=== PATIENT | male | born 1950 | race Caucasian/White ===

== ENCOUNTER 2025-02-23 06:40 | Observation (INO) ==
--- NOTE | 2025-01-24 09:11 | PAT Medication Instructions ---
Medication Instructions Date of Service January 24, 2025 Home Medications atorvastatin 20 mg tablet 20 mg PO QAM cholecalciferol (vitamin D3) 125 mcg (5,000 unit) tablet (Vitamin D3) 125 mcg PO QAM levothyroxine 150 mcg tablet 150 mcg PO QAM lisinopril 10 mg tablet 10 mg PO QAM metoprolol succinate 50 mg tablet,extended release 24 hr 50 mg PO QAM pantoprazole 40 mg tablet,delayed release 40 mg PO QAM DO NOT take the morning of surgery cholecalciferol (vitamin D3) 125 mcg (5,000 unit) tablet (Vitamin D3) 125 mcg PO QAM lisinopril 10 mg tablet 10 mg PO QAM Take morning of surgery With a small sip of water, OTHERWISE NOTHING TO EAT OR DRINK AFTER MIDNIGHT: atorvastatin 20 mg tablet 20 mg PO QAM levothyroxine 150 mcg tablet 150 mcg PO QAM metoprolol succinate 50 mg tablet,extended release 24 hr 50 mg PO QAM pantoprazole 40 mg tablet,delayed release 40 mg PO QAM Other Notes If you have any questions please call us at [phone] or [phone] or [phone] or [phone]
--- NOTE | 2025-01-27 13:38 | Anesthesiology Consultation ---
Date of Service January 27, 2025 Assessment & Plan (1) Encounter for pre-operative examination: Plan - awaiting surgeon ordered medical clearance, Carlos Dominguezfield 02/14/25. - awaiting surgeon ordered UA, patient plans to complete this through [facility]. Chart Review Chart Review: Patient seen in Pre Admission Testing Teaching & Discussion Pre-Anesthesia Teaching/Discussion Notes: Instructed NPO after midnight before surgery, except medications with 15 cc of water. Medication instructions provided according to the PAT guidelines. History Surgery Operation Date: 02/23/25 07:00 Proposed Procedures p Right Total Knee Arthroplasty - Baldo Nguyen MD Height/Weight Height: 6 ft 3 in Weight: 106 kg Allergies Allergy/AdvReac Type Severity Reaction Status Date / Time No Known Allergies Allergy Verified 01/20/25 11:16 Medications Home Medications Medication Instructions Recorded Confirmed Last Taken atorvastatin 20 mg tablet 20 mg PO QAM 01/20/25 01/20/25 Unknown cholecalciferol (vitamin D3) 125 125 mcg PO QAM 01/20/25 01/20/25 Unknown mcg (5,000 unit) tablet (Vitamin D3) levothyroxine 150 mcg tablet 150 mcg PO QAM 01/20/25 01/20/25 Unknown lisinopril 10 mg tablet 10 mg PO QAM 01/20/25 01/20/25 Unknown metoprolol succinate 50 mg 50 mg PO QAM 01/20/25 01/20/25 Unknown tablet,extended release 24 hr pantoprazole 40 mg tablet,delayed 40 mg PO QAM 01/20/25 01/20/25 Unknown release Past Medical History Medical History (Updated 01/27/25 @ 15:12 by Louisa June PA-C) GERD (gastroesophageal reflux disease) controlled, stable per pt History of COVID-19 (~2020) ~2020: flu symptoms. resolved. History of TIA (transient ischemic attack) remote history - pt unsure of date ~early ? Hx of subdural hematoma (1967) at age 17 treated at [facility] s/p football accident Hyperlipidemia Hypertension controlled, stable per pt Hypothyroidism Osteoarthritis Patient denies h/o seizures, heart attack, heart failure, DM, DVTs or blood transfusions. Exercise / Class Metabolic Activity II 4-5 Yardwork/Stairs/Walk up hill (denies chest discomfort or shortness of breath with one flight of stairs) Past Family History Family History Other No family history of adverse response to anesthesia Past Surgical History Surgical History History of appendectomy History of colonoscopy History of craniotomy (1967) + aaron hole surgery at [place] History of esophagogastroduodenoscopy (EGD) History of tonsillectomy Past Anesthesia History No Hx of Anesthesia Complications and No Family Hx of Anesthesia Complications History of PONV No Hx of PONV and No Hx of Motion Sickness Social History Smoking Status: Former smoker Do You Dip or Chew Tobacco: No Smoking End Date: quit 41 years ago Hx Alcohol Use: No Hx Substance Use: No substance use type: does not use Review of Systems Snoring, denies witnessed apneas. Patient denies chest pain, shortness of breath, dyspnea on exertion, fever, chills, cough, wheezing, or palpitations. Physical Exam Vital Signs Vitals BP 103/70 P 68 TEMP 97.9 SP02 97% on RA RESP 18 Physical Patient resting comfortably in chair in no acute distress, alert and oriented, responding appropriately throughout visit Full cervical extension range of motion without pain TMD 3.5 finger breadths Mallampati Score 3 Dentition: upper implant, denies chipped or loose teeth, caps/crowns, or bridges Lungs: normal respiratory effort. Good air movement, clear throughout to auscultation, no adventitious breath sounds Cardiac: regular rate and rhythm, no murmurs noted Carotid arteries: negative bruit bilat Lab Results Anesthesia Preop Results Results Anesthesia Widget: WBC 8.44 K/ul (4.8-10.8) 01/27/25 Hgb 14.2 g/dl (14.0-18.0) 01/27/25 Hct 43.5 % (42.0-52.0) 01/27/25 Plt 187 K/uL (130-400) 01/27/25 Na 137 mmol/L (136-145) 01/27/25 K 4.4 mmol/L (3.5-5.1) 01/27/25 Cl 104 mmol/L (98-107) 01/27/25 CO2 27 mmol/L (21-32) 01/27/25 BUN 19 mg/dl (6-23) 01/27/25 Creat 1.29 mg/dl (0.6-1.4) 01/27/25 Glucose Level 112 mg/dl (70-99(Fasting)) H 01/27/25 PT 10.3 Seconds (9.0-12.0) 01/27/25 PTT 29 Seconds (21-31) 01/27/25 INR 1.0 (0.9-1.1) 01/27/25 Blood Type O Positive 01/27/25 Antibody Screen NEGATIVE 01/27/25 Testing Electrocardiogram Date: 01/27/25 NSR, rate 61 bpm Chest X-Ray Date: 10/24/24 No significant abnormality detected
--- NOTE | 2025-01-30 10:32 | History & Physical Report ---
Date of Service January 30, 2025 Assessment & Plan (1) Osteoarthritis of right knee: Plan: PRE-OP Diagnosis: Right knee osteoarthritis Planned Procedure: Right total knee arthroplasty Plan: Patient is scheduled to undergo this procedure at the [facility] with Dr. Nguyen on February 23, 2025. Risks and complications of the procedure such as: Infection, bleeding, pain, scarring, nerve blood vessel damage, weakness, wound problems, stiffness, incomplete relief of symptoms, hardware failure, hardware loosening, wear, fracture, tendon or ligament injury, blood clots, embolism, cardiac, stroke and were explained to the patient at his visit today and informed consent for the procedure was obtained. We will need to obtain preoperative medical clearance from the patient's primary care provider Carlos Lara. This appointment is scheduled for February 14. Patient is scheduled to meet with anesthesia at the hospital today. While there he will obtain a CBC with differential, complete metabolic panel, PT/INR, blood type and screen, urinalysis, urine culture and sensitivity, EKG and a nasal culture for MRSA. During today's visit we reviewed the total knee packet. I provided the patient with paperwork to obtain obtaining a handicap placard for his vehicle. I provided him with information about lectures offered by [facility] in regards to joint replacement surgery. Patient has a walker, and a raised toilet seat and a shower bench. We discussed discharge planning from the hospital. Patient states that he will most likely do in-home physical therapy for the first 2 weeks before transitioning to outpatient physical therapy [facility] in [place] with Lauren Villasenor. I advised the patient that he will be provided with a prescription for narcotic pain medication for postoperative pain control due to his previous issues with narcotic pain medication patient would like to try tramadol instead. We will have him on aspirin twice daily for the first 30 days postoperatively for blood clot prevention. Patient verbalized understanding of all information provided during today's visit. Patient be scheduled for 2-week postoperative follow-up visit with myself on March 08. History of Present Illness Chief Complaint: Chief Complaint: Right knee pain Primary Care Provider: NO PCP History of Present Illness (including history relevant to procedure): This 74-year-old male presents to the clinic today for his preoperative history and physical. Patient states his right knee stems from a meniscal injury that he sustained approximately 13 years ago. He states that he has had 2 subsequent knee arthroscopy procedures with partial meniscectomy. Patient localizes most of his pain over the anterior medial lateral aspect of his knee. He experiences occasional swelling. He states that he has done physical therapy on 2 separate occasions and continues to have discomfort and recently a gait disturbance. Due to failed conservative management patient is electing to proceed with surgical management at this time. Review Of Systems: A 12 point review of systems is performed and is unremarkable except for those stated in the HPI and past medical history. Past Medical History: Problems: Arthritis of right knee Right knee pain Pes anserinus bursitis of right knee Hypertension Hyperlipidemia Hypothyroidism Procedure History Procedure Procedure Date Comments Right knee arthroscopy x 2 Appendectomy Right hand surgery Cranial surgery Hematoma excision from right leg Allergies and Sensitivities: narcotic analgesics(dependecy) PCN (penicillin)(rash) Current Home Meds: (Last Updated 01/27 13:16) atorvastatin (atorvastatin 20 mg oral tablet) 20 mg PO Daily cholecalciferol (Vitamin D3) levothyroxine (levothyroxine 150 mcg (0.15 mg) oral tablet) 150 mcg PO Daily lisinopril (lisinopril 10 mg oral tablet) 10 mg PO Daily metoprolol (Metoprolol Succinate ER 50 mg oral tablet, extended release) 50 mg PO Daily pantoprazole (pantoprazole 40 mg oral delayed release tablet) 40 mg PO Daily Allergies Allergy/AdvReac Type Severity Reaction Status Date / Time No Known Allergies Allergy Verified 01/20/25 11:16 Home Medications Medication Instructions Recorded Confirmed Type atorvastatin 20 mg tablet 20 mg PO QAM 01/20/25 01/20/25 History cholecalciferol (vitamin D3) 125 125 mcg PO QAM 01/20/25 01/20/25 History mcg (5,000 unit) tablet (Vitamin D3) levothyroxine 150 mcg tablet 150 mcg PO QAM 01/20/25 01/20/25 History lisinopril 10 mg tablet 10 mg PO QAM 01/20/25 01/20/25 History metoprolol succinate 50 mg 50 mg PO QAM 01/20/25 01/20/25 History tablet,extended release 24 hr pantoprazole 40 mg tablet,delayed 40 mg PO QAM 01/20/25 01/20/25 History release Past Med/Surg History Problem List (Updated 01/30/25 @ 10:31 by Richard Green PA-C) Osteoarthritis of right knee Encounter for pre-operative examination Medical History Osteoarthritis GERD (gastroesophageal reflux disease) controlled, stable per pt Hx of subdural hematoma (1967) at age 17 treated at [facility] s/p football accident Hypothyroidism History of TIA (transient ischemic attack) remote history - pt unsure of date ~early ? Hyperlipidemia Hypertension controlled, stable per pt History of COVID-19 (~2020) ~2020: flu symptoms. resolved. Surgical History History of esophagogastroduodenoscopy (EGD) History of appendectomy History of colonoscopy History of craniotomy (1967) + aaron hole surgery at [facility] History of tonsillectomy Family History Other No family history of adverse response to anesthesia Social History Smoking Status: Former smoker Tobacco Type: Cigarettes Second Hand Exposure: No; Do You Dip or Chew Tobacco: No; Hx Alcohol Use: No Hx Substance Use: No Preferred Language: Taiwanese Communication Ability: Effective Marketing Forecaster Required: No Beliefs That Will Affect Care: None Current Living Situation: Spouse Feels Safe at Home: Yes Assistive Devices: Contacts and Glasses Review of Systems All systems reviewed & are unremarkable except as noted in Subjective Physical Exam Physical Exam: Initial Wt: 01/27 104.3 kg 229 lb Physical Exam: (relevant to the procedure, including heart and lung evaluation) General: Alert and oriented x 3 with proper grooming and hygiene Eyes: Pupils are equal and reactive to light with accommodation. Extraocular movements are intact Throat: Posterior oropharynx is clear with absence of edema, erythema or exudate. Dentition is appropriate Cardiac: Regular rate and rhythm with no murmurs or gallops appreciated Lungs: Clear to auscultation throughout with no wheezing, rales or rhonchi Abdomen: Mildly obese, nondistended, nontender with normal active bowel sounds Extremities: Right leg: Active knee range of motion is from 10 degrees of extension to 118 degrees of flexion. Patient has some mild medial and lateral joint line tenderness when the knee is palpated in the flexed position. He has visible varus malalignment. His patella is not mobile due to arthritic change within the patellofemoral joint. Patient has no laxity with varus or valgus stressing. AP drawer sign and Mary test are negative. Patient is neurovascularly intact in right lower extremity but does have a slight antalgic gait. Neuro: Cranial nerves II through XII are intact with no motor or sensory deficit Skin: Normal in appearance no open skin areas or discharge Results & Data Diagnostic Findings Studies (relevant to the procedure): long leg alignment films andPA flexview of the right knee taken today and stored in [facility] system which shows mild varus alignment. Irregularity of subchondral plate on the medial femoral condyle. tricompartmental osteophyte formation. Near bone on bone arthritis in the right knee with cyst in the medial femoral condyle and medial tibial plateau
[~2025-02-23 06:40] MED LIST: BUPIVACAINE 0.25% PF 30 ML VIAL ONE; BUPIVACAINE 0.5 % 5 MG/1 ML PF 10ML VIAL ONE
[2025-02-23] MEDS: dexAMETHasone**PF** 10 MG/ML VIAL IV SCH (07:30)
[2025-02-23] MEDS: ACETAMINOPHEN 500 MG TAB PO SCH ×2 (07:30→13:48)
[2025-02-23] MEDS: LR 60ML/HR IV SCH (07:30)
[2025-02-23] MEDS: LR 500ML BOLUS, THEN 15ML/HR IV SCH (07:30)
[2025-02-23] MEDS: CeleBREX 200 MG CAP PO SCH ×2 (07:31→20:17)
[2025-02-23] MEDS: FAMOTIDINE 20 MG TAB PO SCH (07:31)
[2025-02-23] MEDS ORDERED: MIDAZOLAM HCL 1 MG/ML 2ML VIAL ONE (07:45)
[2025-02-23] MEDS ORDERED: ONDANSETRON INJ 2 MG/ML 2 ML VIAL ONE (07:46)
[2025-02-23] MEDS ORDERED: LIDOCAINE 2% 2 ML VIAL/AMP(20MG/ML) INFIL ONE (07:46)
[2025-02-23] MEDS ORDERED: ATROPINE SULFATE 0.1 MG/ML 10ML SYR IV PRN (08:19)
[2025-02-23] MEDS ORDERED: ONDANSETRON INJ 2 MG/ML 2 ML VIAL IV PRN ×2 (08:19→10:57)
[2025-02-23] MEDS: TRANEXAMIC ACID 1,000 MG **IV Pre-op IV SCH (08:59)
[2025-02-23] MEDS ORDERED: PROPOFOL IV EMULSION 10 MG/ML 20 ML VIAL IV ONE ×3 (09:01→10:25)
--- NOTE | 2025-02-23 09:02 | History & Physical Bridge Note ---
Date of Service February 23, 2025 History & Physical Bridge Note I have examined the patient, reviewed the History & Physical and in the interval since the performance of the History & Physical I have noted the following changes of clinical significance: no changes noted
[2025-02-23] MEDS ORDERED: PHENYLEPHRINE 100MCG/ML 5ML SYR ONE (10:01)
[2025-02-23] MEDS: ROPIVACAINE 0.5% HCL/PF 246 MG, Ketorolac (*for OR use only*) 30 MG, EPINEPHrine 30MG/3... INFIL SCH (10:22)
[2025-02-23] MEDS ORDERED: ePHEDrine sulfate 50 MG/5 ML SYR ONE (10:24)
--- NOTE | 2025-02-23 10:41 | Operative Report ---
Post Operative Report Pre & Post Diagnosis Operation Date: 02/23/25 08:50 Pre-Op Diagnosis: Right Knee Osteoarthritis Post-Op Diagnosis: Right Knee Osteoarthritis I identified the patient and participated in the time-out.: Yes Procedure Operation Date: 02/23/25 08:50 Actual Procedures p Right Total Knee Arthroplasty, cemented(Right) - Baldo Nguyen MD Surgeon Baldo Nguyen MD Associate Chief Nurse CONSUELO Green PA-C. No resident or fellow was available to assist. Estimated Blood Loss 50 Findings Consistent with Post-Op Diagnosis Specimens Right knee bone and soft tissue contents Anesthesia Type Spinal MAC Complications none Disposition Disposition: Recovery Room Indications 74-year-old male, with right knee osteoarthritis refractory to conservative management. X-rays demonstrate joint space narrowing, tricompartmental osteophyte formation, and subchondral sclerosis. I had a long discussion with him about the risks and benefits of surgery, alternatives to surgery, and expected outcomes. After reviewing all these he elected to proceed with surgery. All questions were answered. Informed consent was signed. Description of Procedure Patient was identified in the preoperative holding area where the surgical site, right knee, was marked. Spinal anesthetic was placed by anesthesia. Patient was brought back to the operating room, placed on the operating room table, and IV sedation was administered. A bump was placed underneath the ipsilateral hip. All bony prominences were padded. Perioperative antibiotics and tranexamic acid were administered. Exam under anesthesia was performed. This demonstrated range of motion arc from 15 to 95 degrees. Stable to varus and valgus at 30 degrees. The surgical site was prepped and draped in the normal sterile fashion. Prior to incision a multidisciplinary timeout was called. All in the room were in agreement. We began by exsanguinating the limb with an Esmarch bandage. Tourniquet was inflated to 250 mmHg. A 14 cm long incision was made over the anterior aspect of the knee. I dissected through the subcutaneous tissues to the level of the fascia. Full-thickness flaps were raised above the fascia. A median par apatellar arthrotomy was made. Half the fat pad was excised. A medial release was performed with Bovie electrocautery on the proximal tibia. Synovitis in the knee and suprapatellar pouch was removed. The patella was then everted and held with 2 towel clips. The thickness of the patella was measured at 25 mm. Patellar resection was performed. Caliper showed the patella thickness now to be 14 mm. A size 41 trial was placed and had a great fit. The 3 drill holes were placed then the trial button was placed. The patellar thickness was now 25 mm which I was very happy with. The patellar trial was then removed, and the knee was flexed up. Retractors were placed to protect the MCL and LCL. Osteophytes were removed from the femoral condyles and intercondylar notch. The ACL and PCL were excised. Intramedullary drill guide was drilled into the femur. Distal femoral cutting guide was placed set at 5 degrees of valgus to resect 12 mm off the distal femur. Distal femoral resection was made without difficulty. The tibia was then exposed. The lateral meniscus was sharply excised. The tibial cutting jig was positioned in line with the tibial shaft in the coronal plane and with 3 degrees of posterior slope in the sagittal plane to resect 4 mm off the more involved compartment. The jig was then pinned in position and the tibial cut was made. We then brought the knee into full extension. Lamina spreaders were placed. The medial meniscus was excised. The extension block was then placed for 5 mm thickness poly. This gave us full extension and excellent stability to varus and valgus stress. Next the extension block was removed, the knee was flexed up, collateral ligaments were protected, and the epicondylar axis and Whitesides line were marked out on the distal femoral cut. Femoral sizing guide was placed. External rotation was set at 3 degrees so that the posterior cut would be parallel with the epicondylar axis and perpendicular with Whitesides line. The patient sized to a size 9 femur. 2 pins were then placed through the jig into the distal femur. The jig was removed and the appropriately sized 4-in-1 cutting jig was placed over the pins, then fixated to the bone using threaded, headed pins. We confirmed that we would not notch the femur with our anterior cut. Our 4 cuts were then made. The cutting jig was removed. The flexion block was then placed with the knee held at 90 degrees. There was excellent stability to varus and valgus at 90 degrees with no gapping medially or laterally. Next the box cutting jig was placed on the distal femur. The box cut was made and the femoral trial was impacted into position. Lug holes were drilled in the distal femur. We then reexposed the tibia. The tibia was sized to a 8 for a fixed bearing component and pinned in external rotation on the cut tibial surface. The intramedullary drill followed by the keel punch were used to prepare the tibia. The tibial tray with a 5 mm thickness polyethylene liner was placed and the knee was brought through a full range of motion. There was excellent stability to varus valgus stress throughout a full range of motion, which was approximately 0-120 degrees. Next the trial components were removed. I then injected the posterior capsule and periosteum with the periarticular injection cocktail. The bone cuts were then irrigated and dried while the cement was mixed on the back table. The femoral component was cemented on first. Excess cement was removed. A lap sponge was placed over the femoral component for protection, then the tibia was subluxated anteriorly. The all polyethylene tibial component was then cemented in place. Again excess cement was removed. The knee was brought into full extension and held there until the cement cured. The patella was cemented and clamped. Dilute Betadine solution was then allowed to soak in the knee while the cement cured. Once the cement was fully cured, the knee was irrigated out, the tourniquet was let down and meticulous hemostasis was ensured. The knee was brought through a full range of motion. I was were very happy with the patella tracking and the stability. We then began to close. Interrupted 0 Vicryl suture was used to repair the patellar retinaculum in gutjso-is-potte fashion. The quadriceps and patellar tendons were run with #1 Vicryl. The deep dermal layer was closed with interrupted 2-0 Vicryl. Dermabond and Zipline was used for the skin, followed by a Silverlon dressing. A compressive Cassius wrap was placed and the knee was placed into a knee immobilizer. Patient's sedation was lifted and was transferred to recovery room in stable condition. Summary of implants: Depuy Attune Posterior Stabilized Cemented Femur, size 9 right Attune All-polyethylene tibial component, posterior stabilized 5 mm thickness, size 8 Attune patella medialized dome, size 41 2 batches of Palacos bone cement Postoperative course: Patient will be admitted to the floor for pain control and monitoring. Weightbearing as tolerated with a walker with no knee range of motion for 48 hours. Aspirin for DVT prophylaxis. I attest to the content of the Intraoperative Record and any orders documented therein. Any exceptions are noted below.
--- NOTE | 2025-02-23 10:55 | Operative Report ---
Post Operative Report Pre & Post Diagnosis Operation Date: 02/23/25 08:50 Pre-Op Diagnosis: Right Knee Osteoarthritis Post-Op Diagnosis: Right Knee Osteoarthritis I identified the patient and participated in the time-out.: Yes Procedure Operation Date: 02/23/25 08:50 Actual Procedures p Right Total Knee Arthroplasty, Cemented(Right) - Baldo Nguyen MD Surgeon Baldo Nguyen MD Machine Shop Repair Technician CONSUELO Green PA-C. No resident or fellow was available to assist. Estimated Blood Loss 50 Findings Consistent with Post-Op Diagnosis Specimens Right knee bone and soft tissue Description of Procedure I was present during the entire case assisting with positioning, prepping, draping, wound retraction, wound closure, dressing and immobilizer placement. No fellow present. Please see Dr. Nguyen operative note for specifics of the case. I attest to the content of the Intraoperative Record and any orders documented therein. Any exceptions are noted below.
[2025-02-23] MEDS ORDERED: METOCLOPRAMIDE HCL INJ 5 MG/ML 2 ML VIAL IV PRN (10:57)
[2025-02-23] MEDS ORDERED: ALUMINUM/MAGNESIUM SUSP 30 ML UDC PO PRN (10:57)
[2025-02-23] MEDS ORDERED: TAMSULOSIN HCL 0.4 MG CAP PO PRN (10:57)
[2025-02-23] MEDS ORDERED: diphenhydrAMINE 50 MG/ML VIAL IV PRN (10:57)
[2025-02-23] MEDS ORDERED: MAGNESIUM HYDROXIDE SUSP 30 ML UDC PO PRN (10:57)
[2025-02-23] MEDS ORDERED: NALOXONE HCL 0.4 MG/1 ML VIAL/CARP IV PRN (10:57)
[2025-02-23] MEDS ORDERED: HYDROmorphone INJ 0.5 MG/0.5 ML SYR IV PRN (10:57)
--- NOTE | 2025-02-23 12:09 | XRay Report ---
XR knee RT 1 or 2V routine HISTORY: 74 years-old Male Surgical Post Op right knee arthroplasty COMPARISON: 01/27/2025 TECHNIQUE: 2 views the right knee FINDINGS: Satisfactory alignment of the right knee arthroplasty without acute fracture, dislocation or unexpect ed opaque foreign body. Expected postoperative soft tissue swelling with deep tissue air. IMPRESSION: Satisfactory alignment of the right knee arthroplasty. ACT 112: Negative or not required by law. The above report was generated using voice recognition software. It may contain grammatical, syntax o r spelling errors. Electronically signed by: Vinnie Watson M.D. 02/23/2025 12:08 PM
--- NOTE | 2025-02-23 12:12 | Anesthesiology Progress Note ---
Date of Service February 23, 2025 Anesthesia Post Procedure Vital Signs Vital Signs: Temp Pulse Pulse Resp BP Pulse Ox O2 Del Method 02/23/25 12:00 67 14 111/67 95 Room Air 02/23/25 11:55 71 14 113/65 96 Room Air 02/23/25 11:45 67 16 113/69 96 Room Air 02/23/25 11:35 36.4 C L 65 12 112/67 96 Room Air 02/23/25 11:25 68 12 108/61 94 Room Air 02/23/25 11:15 73 16 113/71 97 Room Air 02/23/25 11:05 70 14 107/67 96 Room Air 02/23/25 10:55 36.4 C L 80 16 123/74 96 Oxymask 02/23/25 07:10 36.6 C 71 18 162/94 H 98 Room Air O2 Flow Rate 02/23/25 12:00 02/23/25 11:55 02/23/25 11:45 02/23/25 11:35 02/23/25 11:25 02/23/25 11:15 02/23/25 11:05 02/23/25 10:55 6 02/23/25 07:10 Transfer of Care Handoff Completed per policy Notes Mental Status: alert / awake / arousable and participated in evaluation Patient Amnestic to Procedure: Yes Nausea / Vomiting: adequately controlled Pain: adequately controlled Airway Patency, RR, SpO2: stable & adequate BP & HR: stable & adequate Hydration State: stable & adequate Neuraxial Anesthesia: was administered and sensory block is resolving Anesthetic Complications: no major complications apparent and Pt Satisfied with anesthetic care
[2025-02-23] MEDS: KETOROLAC TROMETHAMINE 15 MG/ML VIAL IV SCH (13:25)
[2025-02-23] MEDS: SODIUM CHLORIDE 0.9% 1,000 ML IV SCH (13:26)
[2025-02-23] MEDS: Scopolamine CHECK PATCH PLACEMENT SCH (16:25)
[2025-02-23] MEDS: SENNA 8.6 MG TAB PO SCH (20:16)
[2025-02-23] MEDS: DOCUSATE SODIUM 100 MG CAP PO SCH (20:16)
[2025-02-24] MEDS: LEVOTHYROXINE SODIUM 150 MCG TABLET PO SCH (05:43)
[2025-02-24 06:46] VITALS: TEMP 97.5
[2025-02-24 06:46] LABS: Hematocrit (blood only) 40.2 % (42.0-52.0); Hemoglobin 13.6 g/dL (14.0-18.0); Mean Corpuscular Hemoglobin 29.5 pg (25.0-34.0); Mean Corpuscular Volume 87.2 fL (80.0-100.0); Platelet Count 211 K/uL (130-400); RDW Standard Deviation 40.3 fL (36.4-46.3); Red Blood Count 4.61 M/uL (4.70-6.10); White Blood Count 18.64 K/ul (4.8-10.8)
[2025-02-24 07:07] LABS: Anion Gap 8.0 (3-11); Blood Urea Nitrogen 27.0 mg/dl (6-23); Calcium 9.2 mg/dl (8.6-10.3); Carbon Dioxide 26.0 mmol/L (21-32); Chloride 103.0 mmol/L (98-107); Creatinine Clr Calc Pharmacy 61.5 ml/min; Glucose 119.0 mg/dl (70-99(Fasting)); Potassium 4.7 mmol/L (3.5-5.1); Sodium 137.0 mmol/L (136-145)
[2025-02-24] MEDS: MULTIVITAMIN TAB PO SCH (07:46)
[2025-02-24] MEDS: CHOLECALCIFEROL 125 MCG (5,000 UNITS) TAB PO SCH (07:46)
[2025-02-24] MEDS: ATORVASTATIN 20 MG TAB PO SCH (07:46)
[2025-02-24] MEDS: ASPIRIN 81 MG ECTAB PO SCH (07:46)
[2025-02-24] MEDS: dexAMETHasone 10 MG in SYRINGE 0 ML IV SCH (07:46)
[2025-02-24] MEDS: METOPROLOL SUCC 50MG EXT REL TAB PO SCH (07:47)
[2025-02-24 07:50] VITALS: BP 128/76; PULSE 78; RESP 16; O2SAT 96
--- NOTE | 2025-02-24 09:55 | Orthopedic Progress Note ---
Date of Service February 24, 2025 Assessment & Plan (1) S/P total knee arthroplasty: Plan: Weightbearing as tolerated with walker assistance Immobilizer use x 48 hours PT/OT Ice with easy wrap DVT prophylaxis with PUSHPA stockings and aspirin Pain control with p.o. medication Keep Silverlon dressing in place until follow-up Plan is to discharge home today with in-home physical therapy for the first 2 weeks Follow-up at [facility] orthopedics as previously scheduled With questions contact our clinic at [phone] Admission and Anticipated Discharge Date Admission Date: February 23, 2025 Subjective This 74-year-old male is day 1 status post right total knee arthroplasty. Patient states he is doing very well. He states his pain is well-controlled with p.o. pain medication. States he has been able to get up and out of bed with the assistance of his walker and the knee immobilizer. Currently he denies chest pain, shortness of breath, fever, chills, sweats, nausea, vomiting, diarrhea or difficulty voiding. He has no complaint of numbness or tingling in his right lower extremity. Review of Systems Review of Systems: All systems reviewed & are unremarkable except as noted in Subjective Physical Exam Physical Exam: Right knee; Outer dressing is removed. Silverlon is clean dry and intact and left in place. Active knee range of motion is from 0 degrees of extension to 80 degrees of flexion actively. Patient is able to perform an active straight leg raise test. He is able to actively dorsi and plantarflex his foot. His quad strength is 4 out of 5. He is neurovascularly intact in the right lower extremity. Results & Data Vital Signs (Past 12 Hours) Vital Signs Temp Pulse Pulse Resp BP BP Pulse Ox 02/24/25 07:49 36.4 C L 78 16 128/76 96 02/24/25 05:00 36.4 C L 70 18 133/72 94 02/24/25 01:00 36.3 C L 73 17 100/64 93 O2 Del Method 02/24/25 07:49 Room Air 02/24/25 05:00 Room Air 02/24/25 01:00 Room Air Diagnostic Findings Laboratory Results WBC 18.64 K/ul (4.8-10.8) H 02/24/25 04:44 RBC 4.61 M/uL (4.70-6.10) L 02/24/25 04:44 Hgb 13.6 g/dL (14.0-18.0) L 02/24/25 04:44 Hct 40.2 % (42.0-52.0) L 02/24/25 04:44 MCV 87.2 fL (80.0-100.0) 02/24/25 04:44 MCH 29.5 pg (25.0-34.0) 02/24/25 04:44 MCHC 33.8 g/dL (32.0-36.0) 02/24/25 04:44 RDW Std Deviation 40.3 fL (36.4-46.3) 02/24/25 04:44 RDW Coeff of Imelda 12.7 % (11.5-14.5) 02/24/25 04:44 Plt Count 211 K/uL (130-400) 02/24/25 04:44 MPV 10.6 fL (9.4-12.4) 02/24/25 04:44 Sodium 137 mmol/L (136-145) 02/24/25 04:44 Potassium 4.7 mmol/L (3.5-5.1) 02/24/25 04:44 Chloride 103 mmol/L (98-107) 02/24/25 04:44 Carbon Dioxide 26 mmol/L (21-32) 02/24/25 04:44 Anion Gap 8 (3-11) 02/24/25 04:44 BUN 27 mg/dl (6-23) H 02/24/25 04:44 Creatinine 1.43 mg/dl (0.6-1.4) H 02/24/25 04:44 Est Cr Clr Drug Dosing 61.5 ml/min 02/24/25 04:44 eGFR 52.06 02/24/25 04:44 BUN/Creatinine Ratio 18.9 (10-20) 02/24/25 04:44 Glucose 119 mg/dl (70-99(Fasting)) H 02/24/25 04:44 POC Glucose 141 mg/dl (70-99) H 02/23/25 19:23 Calcium 9.2 mg/dl (8.6-10.3) 02/24/25 04:44 Impressions Knee X-Ray 02/23/25 10:57 XR knee RT 1 or 2V routine HISTORY: 74 years-old Male Surgical Post Op right knee arthroplasty COMPARISON: 01/27/2025 TECHNIQUE: 2 views the right knee FINDINGS: Satisfactory alignment of the right knee arthroplasty without acute fracture, dislocation or unexpected opaque foreign body. Expected postoperative soft tissue swelling with deep tissue air. IMPRESSION: Satisfactory alignment of the right knee arthroplasty. ACT 112: Negative or not required by law. The above report was generated using voice recognition software. It may contain grammatical, syntax or spelling errors. Electronically signed by: Vinnie Watson M.D. 02/23/2025 12:08 PM
--- NOTE | 2025-02-24 09:59 | Discharge Summary ---
Date of Service February 24, 2025 Admission HPI Per Admitting Provider History of Present Illness (including history relevant to procedure): This 74-year-old male presents to the clinic today for his preoperative history and physical. Patient states his right knee stems from a meniscal injury that he sustained approximately 13 years ago. He states that he has had 2 subsequent knee arthroscopy procedures with partial meniscectomy. Patient localizes most of his pain over the anterior medial lateral aspect of his knee. He experiences occasional swelling. He states that he has done physical therapy on 2 separate occasions and continues to have discomfort and recently a gait disturbance. Due to failed conservative management patient is electing to proceed with surgical management at this time. Review Of Systems: A 12 point review of systems is performed and is unremarkable except for those stated in the HPI and past medical history. Past Medical History: Problems: Arthritis of right knee Right knee pain Pes anserinus bursitis of right knee Hypertension Hyperlipidemia Hypothyroidism Procedure History Procedure Procedure Date Comments Right knee arthroscopy x 2 Appendectomy Right hand surgery Cranial surgery Hematoma excision from right leg Allergies and Sensitivities: narcotic analgesics(dependecy) PCN (penicillin)(rash) Current Home Meds: (Last Updated 01/27 13:16) atorvastatin (atorvastatin 20 mg oral tablet) 20 mg PO Daily cholecalciferol (Vitamin D3) levothyroxine (levothyroxine 150 mcg (0.15 mg) oral tablet) 150 mcg PO Daily lisinopril (lisinopril 10 mg oral tablet) 10 mg PO Daily metoprolol (Metoprolol Succinate ER 50 mg oral tablet, extended release) 50 mg PO Daily pantoprazole (pantoprazole 40 mg oral delayed release tablet) 40 mg PO Daily Admission Exam Per Admitting Provider Initial Wt: 01/27 104.3 kg 229 lb Physical Exam: (relevant to the procedure, including heart and lung evaluation) General: Alert and oriented x 3 with proper grooming and hygiene Eyes: Pupils are equal and reactive to light with accommodation. Extraocular movements are intact Throat: Posterior oropharynx is clear with absence of edema, erythema or exudate. Dentition is appropriate Cardiac: Regular rate and rhythm with no murmurs or gallops appreciated Lungs: Clear to auscultation throughout with no wheezing, rales or rhonchi Abdomen: Mildly obese, nondistended, nontender with normal active bowel sounds Extremities: Right leg: Active knee range of motion is from 10 degrees of extension to 118 degrees of flexion. Patient has some mild medial and lateral joint line tenderness when the knee is palpated in the flexed position. He has visible varus malalignment. His patella is not mobile due to arthritic change within the patellofemoral joint. Patient has no laxity with varus or valgus stressing. AP drawer sign and Mary test are negative. Patient is neurovascularly intact in right lower extremity but does have a slight antalgic gait. Neuro: Cranial nerves II through XII are intact with no motor or sensory deficit Skin: Normal in appearance no open skin areas or discharge Principal Diagnosis Right knee osteoarthritis Discharge Exam Right knee; Outer dressing is removed. Silverlon is clean dry and intact and left in place. Active knee range of motion is from 0 degrees of extension to 80 degrees of flexion actively. Patient is able to perform an active straight leg raise test. He is able to actively dorsi and plantarflex his foot. His quad strength is 4 out of 5. He is neurovascularly intact in the right lower extremity. Discharge Data Allergies Allergy/AdvReac Type Severity Reaction Status Date / Time No Known Allergies Allergy Verified 02/23/25 06:54 Procedures Performed Operation Date: 02/23/25 08:50 Actual Procedures p Right Total Knee Arthroplasty, Cemented(Right) - Baldo Nguyen MD Ordered Studies 02/23/25 05:00 US - OR guided needle placemen Routine Hospital Course (1) S/P total knee arthroplasty: Patient had an uneventful overnight stay following total knee arthroplasty. He is very pleased with the results of the surgery. He states he is scheduled to begin in-home physical therapy later this weekend. He has questions or concerns that should arise prior to his follow-up he will be sure to contact our clinic. Weightbearing as tolerated with walker assistance Immobilizer use x 48 hours PT/OT Ice with easy wrap DVT prophylaxis with PUSHPA stockings and aspirin Pain control with p.o. medication Keep Silverlon dressing in place until follow-up Plan is to discharge home today with in-home physical therapy for the first 2 weeks Follow-up at [facility] orthopedics as previously scheduled With questions contact our clinic at [phone] Total Time Total Time Spent Total Time Spent (In Minutes): 20 mins Discharge Plan Discharge Items Patient Disposition: Home - Home Health Services Reason For Visit: Right Knee Osteoarthritis Discharge Diagnosis: s/p Right total knee arthroplasty Activity: As commented below Lifting: None Bathing: Keep incision dry Bathing Comment: May shower today Sexual Activity: Wait until after follow-up appointment Exercise/Sports: Wait until after follow-up appointment Driving/Machine Use: No driving until cleared by orthopedic specialisst Weightbearing: Right weightbearing Weightbearing Comment: as tolerated with walker Non-emergency contact: Surgeon Call non-emergency contact if: you have any medication questions, your pain is not controlled, your temperature is above 101.5, your wound has increased drainage and your wound pain has increased Follow-up/Referrals: PCP,NO [Physician] - Diet: Regular Addtl Attending Provider Instructions: Post-operative Instructions Dear Patient and Family/Friends, Before you are discharged from the hospital, it is important to know what to expect when you get home after surgery. To that end, we have created this sheet of discharge instructions which covers many commonly asked questions. Make sure you go through this sheet in its entirety with your nurse before you are discharged. Please note that we will go over the specifics of your surgery and recovery when you return for your first post-operative visit. Sincerely, Dr. Nguyen Medications 1. Oxycodone 5 mg: Take 1 to 2 tablets every 4-6 hours as needed for postoperative pain control. A prescription of this medication will be sent to your pharmacy. 2. Diclofenac sodium 75 mg: Take 1 tablet twice daily for the first 30 days postoperatively for pain and inflammation relief. This will be sent to your pharmacy with a refill. 3. Aspirin 81 mg: Take 1 tablet twice daily for the first [address] for blood clot prevention. Please purchase this medication. 4. Extra strength Tylenol 500 mg: Take 2 tablets every 6-8 hours as needed for additional supplemental pain control. Please purchase this medication also. Pain Expect to be in a fair amount of pain after surgery. Remember, our goal is not to eliminate your pain, but to make it tolerable. It is a good idea to stay ahead of your pain by taking the medications you were prescribed once you get home. Typically, the pain starts improving 3-7 days after surgery. You should start weaning off the narcotic pain medication (oxycodone, hydrocodone, hydromorphone, morphine) as soon as your pain improves. Please call our office if your pain is not adequately controlled. Ice Ice your operative site at least 5 times a day for 15-30 minutes at a time. Make sure you have a thin cloth between the ice or cooling unit and your skin to prevent rowan bite. This is especially important if you received a nerve block. Continue icing your operative site for the first 5-7 days after surgery, then as needed. Diet/Nausea/Vomiting Start by drinking clear liquids and eating crackers. If you can tolerate this, then you may resume your normal diet. If you feel nauseated or vomit, take Zofran/ondansetron (if prescribed). Please call our office if you have intractable nausea or vomiting, or, if after hours, you may go to the Emergency Room for help. Constipation Constipation is a common side effect of narcotic pain medication. If you have not had a bowel movement within 2 days after surgery, we recommend purchasing an over the counter laxative such as Milk of Magnesia, Dulcolax, or Miralax from a local pharmacy, and taking it as instructed. Call our clinic if any questions. Slings and Braces If you were placed in a sling or brace, it must be worn at all times, including sleep. You may remove your sling or brace for physical therapy, home exercises, and showering. The length of time you will be in your brace and range of motion restrictions depends on what surgery you had; these details will be reviewed at your first post-operative appointment. Nerve block The anesthesia team sometimes places a nerve block to help with post-operative pain control. This results in significant numbness and inability to move the extremity. The nerve block usually wears off in 8-12 hours, but sometimes can last up to 24 hours. Please call our office if you are still unable to move your extremity after 24 hours, unless you received a pain pump to take home. Nerve blocks typically wear off quickly, so start taking pain medication as soon as you start feeling soreness near your surgical site. Weight bearing and Range of Motion. Do not bear any weight through your operative extremity immediately after surgery. If you had upper extremity surgery, do not lift anything with that arm. If you are in a knee brace, keep it locked in place until your follow-up. We will discuss your weight bearing, range of motion, and lifting restrictions in detail at your first post-operative appointment. Continuous Passive Motion (CPM) Machine If you were prescribed a CPM machine, it will start after your first post- operative appointment, at which time we will give you instructions on the range of motion settings and duration of treatment Physical therapy You will be given a prescription for physical therapy or occupational therapy at your first post-operative appointment. Typically, patients start therapy within 1 week of surgery Wound care and showering We will inspect your wound at your first post-operative visit, and may do a dressing change at that time. Most patients will be in a water-proof dressing that is removed 14 days after surgery. It is normal to see some dried blood on the dressing. Do not remove your dressing, paper strips or sutures yourself unless you are given permission. Showering is allowed the day after surgery. Do not scrub or remove any dressings. The wound should not be submerged underwater (i.e. in a bathtub or pool) until 4 weeks after surgery PUSHPA stockings If you were given white stockings, these are to be worn at all times except to shower (on both legs) for the first 2 weeks after surgery. Driving You may not drive while taking narcotic pain medication or while in a cast, splint, sling or brace. You, the patient, need to make the final determination about when you are safe to drive, however, the earliest you may consider driving after surgery is below: Hand/Wrist/Elbow Surgery: 3 days Shoulder Surgery: 2 weeks Hip,/Knee/Ankle Surgery: 4 weeks Fracture repair: 6 weeks Return to Work Your return to work depends on what surgery was done and what type of work you do. Please bring any paperwork your employer needs completed to your first post-operative visit. Also, bring a description of your job duties, as this helps us to understand what risks you may face at work. Travel Avoid long distance travel (greater than 1 hour) in airplanes and cars for the first 6 weeks after surgery. If you must travel, you need to have a Doppler ultrasound done before you travel to rule out a blood clot in your legs. Follow-up You should have a follow-up appointment already scheduled 1-2 days after surgery. If not, please contact our office to make this appointment before you leave the hospital. When to call the office It is normal to have swelling and bruising in the limb that was operated on. This will improve with time. It is also normal to have fevers for the first 2 days after surgery. Reasons you should call your doctor include: Uncontrolled pain; Nausea, vomiting, or constipation that does not improve with medication; Fevers over 101.5, chills, sweats; Drainage or bleeding from the wound; Foul od or; Spreading areas of redness; Any other concerns. Contact Information Please call Dr. Nguyen's office at [phone] with any concerns. Pending Studies at Discharge: No Stand-Alone Forms: [facility] Medications and DC Order Prescriptions: New aspirin 81 mg Tablet,Delayed Release (Dr/Ec) 81 mg PO BID 30 Days Qty: 60 0RF acetaminophen [Tylenol Extra Strength] 500 mg Tablet 1,000 mg PO Q8 30 Days Qty: 180 0RF oxycodone 5 mg Tablet 5 - 10 mg PO Q4H MDD Max 6/day PRN (Reason: Post op pain control) Qty: 28 0RF diclofenac sodium 75 mg tablet,delayed release (DR/EC) 75 mg PO BID 30 Days Qty: 60 1RF Continued atorvastatin 20 mg Tablet 20 mg PO QAM metoprolol succinate 50 mg Tablet Extended Release 24 Hr 50 mg PO QAM pantoprazole 40 mg Tablet,Delayed Release (Dr/Ec) 40 mg PO QAM lisinopril 10 mg Tablet 10 mg PO QAM levothyroxine 150 mcg Tablet 150 mcg PO QAM cholecalciferol (vitamin D3) [Vitamin D3] 125 mcg (5,000 unit) Tablet 125 mcg PO QAM Admission Data Admit Date/Time: 02/23/25 10:57 Attending Provider: Baldo Nguyen Admit Provider: Baldo Nguyen Primary Care Provider: Carlos Lara Other Providers: [facility] Other Interventions: Discharge Summary Assessment (RN) Last Done: 02/24/25 09:25
[2025-02-26] MEDS ORDERED: Scopolamine REMOVE TRANSDERM PATCH ONE (08:00)
== END 2025-02-24 10:24 | disposition home health service (06) ==
LOC: ASU 06:40 → PACUINP 06:40 → 3E 13:23